=== PATIENT | female | born 1995 ===

== ENCOUNTER 2021-09-10 15:12 | Emergency (ER) | payer OTHER ==
[~2021-09-10] VITALS: Ht 154.9 cm; Wt 72.6 kg
[2021-09-10 16:43] LABS: Hemoglobin 14.3 g/dL (11.5-16.0); Mean Corpuscular HGB 28.3 pg (26.0-34.0); Mean Corpuscular HGB Conc 33.3 g/dL (31.5-36.5); Mean Corpuscular Volume 85 fL (80-100); Mean Platelet Volume 10.8 fL (9.1-12.4); Platelet Count 206 K/mm3 (150-400); RDW Coefficient Variation 11.6 % (11.7-14.2); RDW Standard Deviation 35.9 fL (35.1-46.3); Red Blood Cell Count 5.06 M/mm3 (3.80-5.20)
[2021-09-10 17:07] LABS: Alanine Aminotransfer (ALT/SGP 23 U/L (12-78); Albumin, Blood 4.4 g/dL (3.4-5.0); Albumin/Globulin Ratio 1.5 (0.8-1.8); Alk Phos 44 U/L (50-136); Anion Gap 5 mmol/L (6-16); Aspartate Aminotrans (AST/SGOT 15 U/L (12-37); Bilirubin, Total 0.8 mg/dL (0.1-1.0); Blood Urea Nitrogen 10 mg/dL (8-24); CO2, Blood 27 mmol/L (21-32); Calcium, Blood 9.3 mg/dL (8.5-10.1); Chloride, Blood 106 mmol/L (98-108); Creatinine, Blood 0.67 mg/dL (0.40-1.00); Glomerular Filtration Rate >60 (60-); Glucose, Blood 93 mg/dL (70-99); Potassium, Blood 3.9 mmol/L (3.5-5.5); Sodium, Blood 138 mmol/L (136-145); Total Protein, Blood 7.4 g/dL (6.4-8.2)
[2021-09-10 17:11] LABS: BASOPHILS ABSOLUTE MAN 0.04 K/mm3 (0.00-0.23); BASOPHILS PERCENT MAN 1 % (0-2); EOSINOPHILS ABSOLUTE MAN 0.12 K/mm3 (0.00-0.68); EOSINOPHILS PERCENT MAN 3 % (0-6); LYMPHOCYTES % ATYPICAL MANUAL 2 % (0-0); LYMPHOCYTES ABSOLUTE MAN 1.68 K/mm3 (0.84-5.20); LYMPHOCYTES PERCENT MAN 38 % (21-46); MONOCYTES ABSOLUTE MAN 0.54 K/mm3 (0.16-1.47); MONOCYTES PERCENT MAN 13 % (4-13); SEG NEUTROPHILS PERCENT MAN 43 % (41-73); TOTAL CELLS COUNTED 100
[2021-09-10 19:47] LABS: Source, Urine Clean Catch
[2021-09-10 19:57] LABS: Bilirubin, Urine Neg (Neg); Glucose Qualitative, Urine Neg (Neg); Ketones, Urine 1+ (Neg); Nitrite, Urine Neg (Neg); Urobilinogen, Urine NORM (Normal)
[2021-09-10 20:05] LABS: Blood, Urine 2+ (Neg); Leukocyte Esterase, Urine Neg (Neg); Protein, Urine Neg (Neg); Specific Gravity, Urine 1.015 (1.003-1.022)
[2021-09-10 20:06] LABS: Appearance, Urine Hazy (Clear); Bacteria Rare /hpf; Color, Urine Pale Yellow (P-Yellow); Squamous Epithelial Cells Rare /hpf (Few); White Blood Cells, Urine 0-2 /hpf (0-5)
== END 2021-09-10 21:33 | disposition home or self-care (01) ==
LOC: ER 15:12
PROVIDERS: Physician Assistant
DX: R00.2 Palpitations (principal)
CPT/HCPCS: 80053; 81001; 84703; 85025; 93005; 93010; 99284-25

== ENCOUNTER 2022-02-25 01:38 | Emergency (ER) | payer OTHER ==
[~2022-02-25] VITALS: Ht 154.9 cm; Wt 68.0 kg
== END 2022-02-25 05:36 | disposition home or self-care (01) ==
LOC: ER 01:38
DX: K08.89 Other specified disorders of teeth and supporting structures (principal)
CPT/HCPCS: 99282